=== PATIENT | female | born 1985 | race Caucasian/White ===

== ENCOUNTER 2016-06-08 08:15 | Outpatient (RCR) | payer OTHER | END 2016-06-11 | disposition home or self-care (01) | LOC: PTY 08:15 | DX: M45.0 Ankylosing spondylitis of multiple sites in spine (principal) ==

== ENCOUNTER 2016-06-21 08:30 | Outpatient (RCR) | payer OTHER | END 2016-07-12 | disposition home or self-care (01) | LOC: PTY 08:30 | DX: M45.0 Ankylosing spondylitis of multiple sites in spine (principal); M25.60 Stiffness of unspecified joint, not elsewhere classified ==

== ENCOUNTER 2016-07-14 07:02 | Outpatient (RCR) | payer OTHER | END 2016-08-11 | disposition home or self-care (01) | LOC: PTY 07:02 | DX: M45.0 Ankylosing spondylitis of multiple sites in spine (principal); M25.60 Stiffness of unspecified joint, not elsewhere classified ==